=== PATIENT | male | born 1985 | race Caucasian/White ===

== ENCOUNTER 2025-01-07 08:32 | Emergency (ER) | payer OTHER, SELFPAY ==
--- NOTE | 2025-01-07 08:34 | ED_ITS ---
HPI - Headache General Chief Complaint: Headache Stated Complaint: Headache Time Seen by Provider: 01/07/25 08:34 Source: patient Mode of arrival: ambulatory Limitations: no limitations History of Present Illness HPI Narrative: Tristan is a 39 year old male patient presenting to the clinic today with c/o headache x 1 week. He reports pain is a dull ache and it moves around his head. Currently rates his pain a 2 to 3/10. Has been taking aspirin and Tylenol for the pain. Denies any URI symptoms, sore throat, visual changes, chest pain, or shortness of breath. Blood pressure is elevated in the clinic today-168/102 and 175/105. Manual blood pressure obtained and was 166/110. Patient has no history of hypertension and does not currently take any medications. He has not seen a provider in several years. Related Data Allergies Allergy/AdvReac Type Severity Reaction Status Date / Time No Known Allergies Allergy Verified 01/07/25 08:45 Review of Systems Review of Systems: Pertinent positives per HPI. Patient denies any fever, chills, rash, visual c hanges, dizziness, cough, runny nose, sore throat, shortness of breath, chest pain, palpitations, nausea, vomiting, diarrhea, constipation, abdominal pain, or any urinary issues. PMFSH Comments At the time of my signature, I reviewed and agree with the nursing past medical, surgical, social, and family history. There is no relevant family history pertinent to the patient complaint. Exam Narrative: General: Well-developed, well nourished, in no apparent distress Head: Normocephalic, atraumatic Eyes: Pupils equally round and reactive to light bilaterally, EOM intact, sclera and conjunctive clear, no discharge, lids normal Ears: TMs intact and clear, ear canals clear, no drainage, grossly hearing normal. Nose: Nares patent, no discharge, no inflammation, no sinus tenderness. Mouth: Oropharynx without lesions or masses, good dentition, MMM. Tongue midline, even rise and fall of uvula Neck: Supple, trachea midline, no enlargement of anterior or posterior cervical nodes, no thyroid masses or goiter palpable. Cardio: Regular rate and rhythm, s1 and s2 normal, no murmur appreciated. Resp: Clear to auscultation bilaterally anteriorly and posteriorly, no rhonchi, rales, wheezing or rubs Musculoskeletal: No deformity, non-tender to palpation, grossly normal range of motion, muscle strength strong and equal, peripheral pulse strong, no edema, no cyanosis, normal gait and station Neuro: Alert and oriented x4 with normal speech, no focal deficits, cranial nerves I through XII intact, muscle strength 5 out of 5, sensation intact bilaterally. Course Course Emergency Course: Portions of this record may have been created with voice recognition software. Level of Care: Express Care Visit Vital Signs Vital signs: Vital Signs Temperature 37.1 C 01/07/25 08:40 Pulse Rate 92 01/07/25 08:40 Respiratory Rate 20 01/07/25 08:40 Blood Pressure 168/102 H 01/07/25 08:40 Pulse Oximetry 99 01/07/25 08:40 Oxygen Delivery Room Air 01/07/25 08:40 Temperature 37.1 C 01/07/25 08:40 Pulse Rate 92 01/07/25 08:40 Respiratory Rate 20 01/07/25 08:40 Blood Pressure 175/105 H 01/07/25 08:45 Pulse Oximetry 99 01/07/25 08:40 Oxygen Delivery Room Air 01/07/25 08:40 Vital signs reviewed Transfer Transfered to: [facility] Transportation: Other (Private car) Transfer rationale: Headache, HTN urgency- higher level of care Accepting physician: Dr. Larkin Transfer comments: Private car MDM - Headache MDM Narrative Medical decision making narrative: At the time of visit patient is resting comfortably on the exam table. Patient appears to be nontoxic. C/o headache x 1 week. He reports pain is a dull ache and it moves around his head. Currently rates his pain a 2 to 3/10. Has been taking aspirin and Tylenol for the pain. Denies any URI symptoms, dizziness, so re throat, visual changes, chest pain, or shortness of breath. Blood pressure is elevated in the clinic today-168/102 and 175/105. Manual blood pressure obtained and was 166/110. Patient has no history of hypertension and does not currently take any medications. He has not seen a provider in several years. On exam- patient has a normal neuro exam. Lung sounds clear and heart rate- regular rate and rhythm. Patient is alert oriented x4. Plan: I suspect patient has hypertension urgency/headache. Recommend transfer to the ED for further evaluation. Patient agrees to transfer to [facility] in [place], [place]. Report called to Vangie MOSES and Dr. Larkin accepts patient for transfer. Transfer via private car. Differential Diagnosis Differential diagnosis: Likely migraine, tension headache, subarachnoid hemorrhage, headache, meningitis, sinusitis and other (Viral syndrome, dehydration) Discharge Plan Discharge Clinical Impression: Hypertensive urgency Headache Qualifiers: Headache type: other vascular headache Qualified Code(s): G44.1 - Vascular headache, not elsewhere classified Patient Disposition: Acute Care Hospital Condition: Stable Patient Language: Burundian Follow-up/Referrals: UNKNOWN,DOCTOR [Non-Staff] Time of Disposition: 09:00 Quality NIHSS Nursing Documentation ED NIHSS nursing documentation: reviewed/agree
[2025-01-07 08:40] VITALS: BP 168/102; PULSE 92; RESP 20; TEMP 37.1; O2SAT 99
--- OUTSIDE RECORDS SUMMARY | 2025-01-07 08:40 | XMS_ITS | Clinical Summary ---
Author Organization [facility] Address [address] [place] [address] Phone Care Team Providers Care Station Attendant Name Role Phone Dmitri Herr DO Primary Care Provider [phone] Allergies No known active allergies Medications No known medications Immunizations Immunization Administration Dates Next Due Covid-19, Mrna, Lnp-s, PF, 1 00 mcg/0.5 mL Dose (Moderna) 05/29/2020 Social History Tobacco Use Types Packs/Day Years Used Date Smoking Tobacco: Never Smokeless Tobacco: Never Tobacco Cessation:Counseling Given: Not Answered Sex and Gender Information Value Date Recorded Sex Assigned at Not on file Legal Sex Male 11:44 PM CDT Gender Identity Not on file Sexual Orientation Not on file Last Filed Vital Signs Vital Sign Reading Time Taken Comments Blood Pressure 163/91 10/20/2023 9:52 AM CDT Pulse 89 10/20/2023 11:12 AM CDT Temperature 37.5 C (99.5 F) 10/20/2023 9:52 AM CDT Respiratory Rate 16 10/20/2023 11:12 AM CDT Oxygen Saturation 98% 10/20/2023 11:12 AM CDT Inhaled Oxygen Concentration - - Weight 90.7 kg (200 lb) 10/20/2023 9:52 AM CDT Height 172.7 cm (5' 8) 10/20/2023 9:52 AM CDT Body Mass Index 30.41 10/20/2023 9:52 AM CDT Plan of Treatment Health Maintenance Due Date Last Done Comments Hepatitis C Virus (HCV) Screening 1984 TdaP Immunization 1984 Hepatitis B Immunization (1 of 3 - 19+ 3-dose series) 10/19/2003 Human Papillomavirus (HPV) Immunization (1 - 3-dose SCDM series) 10/19/2011 SARS-COV-2 Immunization (2 - season) 2024 05/29/2020 Influenza Immunization (#1) 2025 04/30/2018 Respiratory Syncytial Virus (RSV) Immunization (Adult) (1 - 1-dose 75+ series) 10/19/2059 Meningococcal Immunization (ACWY) Aged Out No longer eligible based on patient's age to complete this topic Pneumococcal Immunization Combined Aged Out No longer eligible based on patient's age to complete this topic Rotavirus Immunization Aged Out No lo nger eligible based on patient's age to complete this topic Insurance [facility] Care Teams Station Attendant Relationship Specialty Start Date End Date Dmitri Herr DO [address] [id number] PCP - General Family Medicine 10/20/23
--- OUTSIDE RECORDS SUMMARY | 2025-01-07 08:40 | XMS_ITS | Clinical Summary ---
Author Organization [facility] Address [address] [place] [address] Care Team Providers Care Fish Bin Tender Name Role Phone Dmitri Herr DO Primary Care Provider [phone] Source Comments [facility],non-owned Affiliates and Associated Physician Practices is amultiple site organization consisting of ambulatory clinics and hospital sitesin [place], [place], [place] and [place]. This disclosure is being madepursuant to the Care Everywhere program and may not contain all information available regarding this patient. Last updated 18.[facility] Allergies Active Allergy Reactions Criticality Noted Date Comments Minocycline Hepatic Injury High 04/30/2018 Developed Autoimmune hepatitis. Medications * Be aware that medications may not be up to date on this document. Alwaysverify current medications with the patient. loratadine (CLARITIN) 10 MG tablet Take 10 mg by mouth once daily as needed for Runny Nose or Allergies Active calcium carbonate (TUMS) 500 MG chew tabletIndicatio ns:Acid Indigestion Take 1 tablet by mouth as needed for Heartburn Reasons: Acid Indigestion Active acetaminophen (TYLENOL) 325 MG tablet Take 325 mg by mouth every 4 hours as needed for Fever or Pain Maximum allowable Acetaminophen amount = 4 Grams (4000 mg) / 24 hours. Active omeprazole (PRILOSEC) 20 MG capsuleIndicati ons:Esophagitis Take 2 capsules by mouth daily before breakfast 60 capsule 5 0 Active Active Problems Problem Noted Date Diagnosed Date Esophagitis 11/23/2018 Abdominal bloating 11/23/2018 Celiac disease 04/30/2018 Overview (04/30/2018): Diagnosed age 10 Autoimmune hepatitis 04/30/2018 Overview (04/30/2018): Based on biopsy Normal liver chemistries Low fibroscan Immunizations Immunization Administration Dates Next Due HEP A VACCINE, ADULT 05/04/2018(Deferred : Other - will see by PCP for this) INFLUENZA VACCINE, QUADR. (A FLURIA, FLUZONE QUADRIVALENT; 6MO+) (IIV4) 04/30/2018 Family History Medical History Relation Name Comments Celiac Disease Mother Colitis Mother lymphocytic Sjogren's Syndrome Mother Cancer - Colon Neg Hx Cirrhosis Neg Hx Relation Name Status Comments Mother Social History Tobacco Use Types Packs/Day Years Used Date Smoking Tobacco: Never Smokeless Tobacco: Never Alcohol Use Standard Drinks/Week Comments Yes 0 (1 standard drink = 0.6 oz pur e alcohol) rare Sex and Gender Information Value Date Recorded Sex Assigned at Not on file Legal Sex Male 5:38 AM TAX TECHNICIAN Gender Identity Not on file Sexual Orientation Not on file Last Filed Vital Signs Vital Sign Reading Time Taken Comments Blood Pressure 151/96 03/20/2020 2:40 PM TAX TECHNICIAN Pulse 109 03/20/2020 2:40 PM TAX TECHNICIAN Temperature 36.4 C (97.5 F) 03/22/2019 1:46 PM TAX TECHNICIAN Respiratory Rate 18 03/22/2019 1:46 PM TAX TECHNICIAN Oxygen Saturation 99% 03/20/2020 2:40 PM TAX TECHNICIAN Inhaled Oxygen Concentration - - Weight 88.2 kg (194 lb 6.4 oz) 03/20/2020 2:40 P M TAX TECHNICIAN Height 175.3 cm (5' 9) 03/20/2020 2:40 PM TAX TECHNICIAN Body Mass Index 28.71 03/20/2020 2:40 PM TAX TECHNICIAN Plan of Treatment Health Maintenance Due Date Last Done Comments LIPID TESTING 1984 HIV SCREENING 10/19/1999 HEPATITIS C SCREENING 10/14/2002 DTAP/TDAP/TD VACCINES (1 - Tdap) 10/19/2003 HEPATITIS A VACCINE (1 of 2 - Risk 2-dose series) 10/19/2003 HEPATITIS B VACCINE (1 of 3 - 19+ 3-dose series) 10/19/2003 HPV VACCINE (1 - 3-dose SCDM series) 10/19/2011 COVID-19 VACCINE (1 - 2023-2 5 season) 2024 DEPRESSION SCREENING 05/19/2024 INFLUENZA VACCINE (#1) 2025 04/30/2018 ZOSTER VACCINE (1 of 2) 2034 HIB VACCINE Aged Out No longer eligi ble based on patient's age to complete this topic MENINGOCOCCAL (Group B) VACC INE SHARED DECISION-MAKING Aged Out No longer eligibl e based on patient's age to complete this topic MENINGOCOCCAL GROUPS A/C/Y/W VACCINE Aged Out No longer eligible b ased on patient's age to complete this topic PNEUMOCOCCAL VACCINE Aged Out No long er eligible based on patient's age to complete this topic Goals Goal Patient Goal Type Associated Problems Recent Progress Patient-Stated? Author Safety General On track( 020 2:53 PM TAX TECHNICIAN) Deborah Rivera RN Note: Expected end date: Ongoing Interventions: Your nurse will assess your risk for falls/injury each visit Use appropriate and safe transfer methods Medication Management General On track( 020 2:53 PM TAX TECHNICIAN) Deborah Rivera RN Note: Expected end date: Ongoing Interventions: Take all medications as prescribed Let your doctor know right away about any changes in your medications Insurance [facility] Care Teams Fish Bin Tender Relationship Specialty Start Date End Date Dmitri Herr DO [address] [id number] PCP - General 04/30/18
[2025-01-07 08:45] VITALS: BP 175/105
== END 2025-01-07 09:04 | disposition short-term general hospital (02) ==
PROVIDERS: Emergency Provider Nurse Practitioner Family
DX: I16.0 Hypertensive urgency (principal); G44.1 Vascular headache, not elsewhere classified
CPT/HCPCS: 99202; G0463